=== PATIENT | male | born 1975 | race African-American/Black ===

== ENCOUNTER 2023-02-21 15:06 | Inpatient (IN) | payer OTHER ==
[~2023-02-21] VITALS: Ht 188 cm; Wt 125.6 kg
[2023-02-21 15:28] LABS: Basophils # (auto) 0.1 10 ^3/uL (0-0.2); Basophils % (auto) 1.5 % (0.0-2.0); Eosinophils # (auto) 0.2 10 ^3/uL (0-0.8); Eosinophils % (auto) 2.9 % (0.0-7.0); Hematocrit 43.8 % (41.0-53.0); Hemoglobin 14.8 g/dL (13.5-17.5); Lymphocytes # (auto) 1.9 10 ^3/uL (0.4-5.4); Lymphocytes % (auto) 31.8 % (10.0-50.0); Mean Corpuscular Hgb Conc. 33.7 g/dL (32.0-36.0); Monocytes # (auto) 0.8 10 ^3/uL (0-1.3); Monocytes % (auto) 13.9 % (0.0-12.0); Neutrophils % (auto) 49.9 % (37.0-80.0); Nucleated Red Blood Cells % 0.1 %; Red Blood Cells 4.93 10^6/uL (4.5-5.90); Red Cell Distribution Width 14.1 % (11.8-14.3)
[2023-02-21] MEDS ORDERED: InsuLIN REG 1unit/0.01ml Soln (100units/ml) IV ONE (15:30)
[2023-02-21] MEDS ORDERED: SODIUM CHLORIDE 0.9% 1,000 ML IV ONE (15:30)
[2023-02-21 15:43] LABS: Alanine Aminotransferase 32 U/L (7-40); Alkaline Phosphatase 86 U/L (46-116); Anion Gap 9 (5-15); Aspartate Aminotransferase 16 U/L (13-40); BUN/Creatinine Ratio 10.1 (10.0-20.0); Blood Urea Nitrogen 11 mg/dL (9-23); Calcium 8.8 mg/dL (8.7-10.4); Carbon Dioxide 26 mmol/L (20-30); Chloride 103 mmol/L (98-107); Glucose 291 mg/dL (74-106); Sodium 138 mmol/L (136-145)
[2023-02-21 15:44] LABS: Albumin 4.2 g/dL (3.2-4.8); Bilirubin, Total 0.5 mg/dL (0.2-1.0); Total Protein 6.7 g/dL (5.7-8.2)
[2023-02-21 16:41] LABS: Urine Bacteria FEW /hpf (None Seen); Urine Blood Negative /uL (Negative); Urine Clarity Clear (Clear); Urine Color Colorless (Yellow); Urine Protein, UAD Negative (Negative); Urine Specific Gravity 1.032 (1.001-1.035); Urine Sperm PRESENT /hpf (None Seen); Urine Urobilinogen Normal (Negative); Urine WBC 1 /hpf (0 - 3)
[2023-02-21] MEDS ORDERED: ONDANSETRON HCL 4 MG/2 ML VIAL IV PRN (20:45)
[2023-02-21] MEDS ORDERED: DEXTROSE (50%) 50ML SYRG IV PRN (20:45)
[2023-02-21] MEDS ORDERED: NITROGLYCERIN 0.4 MG SL TAB SL PRN (20:45)
[2023-02-21] MEDS ORDERED: MORPHINE SULFATE INJ 2 MG/ml SYRG IV PRN (20:45)
[2023-02-21] MEDS ORDERED: ACETAMINOPHEN 325 MG TAB PO PRN (20:45)
[2023-02-21] MEDS ORDERED: TEMAZEPAM 15 MG CAP PO PRN (20:45)
[2023-02-21] MEDS ORDERED: ATORVASTATIN 20 MG TAB PO SCH (22:00)
[2023-02-21 22:16] LABS: Triglycerides 251 mg/dL (< 150)
[2023-02-21 22:17] LABS: LDL Cholesterol 95 mg/dL (< 100)
[2023-02-21 22:18] LABS: Cholesterol 180 mg/dL (< 200); HDL Cholesterol 42 mg/dL (40-59)
[2023-02-21 22:24] VITALS: PULSE 92; RESP 20; O2SAT 95
[2023-02-21] MEDS: ACCU-CHEK COMFORT CURVE STRIP VI SCH (22:43)
[2023-02-21] MEDS ORDERED: MAGNESIUM SULFATE 1GM/100ML 200 ML IV ONE (22:50)
[2023-02-21] MEDS: InsuLIN REG 1unit/0.01ml Soln (100units/ml) SC SCH (22:52)
[2023-02-21] MEDS: MAGNESIUM SULFATE 1GM/100ML 100 ML IV SCH ×2 (22:52→23:30)
[2023-02-22] VITALS (8 sets, daily range): BP systolic 120–142; BP diastolic 70–82; PULSE 75–97; RESP 16–20; TEMP 97.9–98.5; O2SAT 92–98
[2023-02-22] MEDS ORDERED: INSU-1224 (01:44)
[2023-02-22] MEDS ORDERED: RIV20T PO (01:44)
[2023-02-22] MEDS ORDERED: INSUINJ37 SC (01:44)
[2023-02-22 05:54] LABS: Basophils # (auto) 0 10 ^3/uL (0-0.2); Basophils % (auto) 0.8 % (0.0-2.0); Eosinophils # (auto) 0.2 10 ^3/uL (0-0.8); Eosinophils % (auto) 3.4 % (0.0-7.0); Hematocrit 41.9 % (41.0-53.0); Lymphocytes % (auto) 33.1 % (10.0-50.0); Mean Corpuscular Hemoglobin 29.7 pg (28.0-32.0); Mean Corpuscular Hgb Conc. 33.5 g/dL (32.0-36.0); Mean Corpuscular Volume 88.8 fL (80.0-100.0); Monocytes # (auto) 0.9 10 ^3/uL (0-1.3); Monocytes % (auto) 14.6 % (0.0-12.0); Neutrophils # (auto) 2.9 10 ^3/uL (1.6-8.6); Neutrophils % (auto) 48.1 % (37.0-80.0); Nucleated Red Blood Cells % 0.1 %; Red Blood Cells 4.72 10^6/uL (4.5-5.90); Red Cell Distribution Width 14.1 % (11.8-14.3)
[2023-02-22 06:00] LABS: Chloride 105 mmol/L (98-107); Potassium 3.5 mmol/L (3.5-5.1); Sodium 137 mmol/L (136-145)
[2023-02-22 06:01] LABS: Anion Gap 6 (5-15); Calcium 8.5 mg/dL (8.5-10.1); Carbon Dioxide 26 mmol/L (20-30)
[2023-02-22] MEDS: ACCU-CHEK COMFORT CURVE STRIP VI SCH ×4 (06:01→21:15)
[2023-02-22] MEDS: InsuLIN REG 1unit/0.01ml Soln (100units/ml) SC SCH ×4 (06:03→21:16)
[2023-02-22 06:06] LABS: BUN/Creatinine Ratio 9.6 (10.0-20.0); Blood Urea Nitrogen 9 mg/dL (9-23); Glucose 202 mg/dL (74-106)
[2023-02-22] MEDS ORDERED: ASPirin 81 mg TAB PO SCH (10:00)
[2023-02-22] MEDS ORDERED: RIVAROXABAN 20 MG TAB PO SCH (18:00)
[2023-02-22] MEDS: ATORVASTATIN 20 MG TAB PO SCH ×2 (20:00→21:17)
[2023-02-22] MEDS: ENOXAPARIN SOD 120 MG/0.8 ML SYRINGE SC SCH (21:20)
[2023-02-22] MEDS: DAKINS QUARTER STR 0.125% (NaHypochlorite) 473 ML TOPICAL SOL TOP SCH (21:23)
[2023-02-23 08:00] VITALS: BP 126/80; PULSE 81; PULSE 85; RESP 18; TEMP 98.1; O2SAT 97
[2023-02-23] MEDS: DAKINS QUARTER STR 0.125% (NaHypochlorite) 473 ML TOPICAL SOL TOP SCH ×2 (10:00→22:47)
[2023-02-23] MEDS: ENOXAPARIN SOD 120 MG/0.8 ML SYRINGE SC SCH ×2 (10:00→21:28)
[2023-02-23] MEDS: InsuLIN REG 1unit/0.01ml Soln (100units/ml) SC SCH ×5 (11:30→21:28)
[2023-02-23] MEDS: ACCU-CHEK COMFORT CURVE STRIP VI SCH ×5 (11:30→22:48)
[2023-02-23] MEDS ORDERED: ASPirin-EC 81 mg tab PO SCH (13:00)
[2023-02-23 16:00] VITALS: BP 117/69; PULSE 87; RESP 18; TEMP 98.6; O2SAT 98
[2023-02-23 20:00] VITALS: PULSE 90
[2023-02-23] MEDS: ATORVASTATIN 20 MG TAB PO SCH (21:28)
[2023-02-23 22:00] VITALS: BP 126/60; PULSE 62; RESP 17; TEMP 98.7; O2SAT 98
[2023-02-24 05:00] VITALS: BP 114/59; PULSE 83; RESP 17; TEMP 98.6; O2SAT 97
[2023-02-24] MEDS ORDERED: LACT12LO26 TOP (05:48)
[2023-02-24] MEDS: InsuLIN REG 1unit/0.01ml Soln (100units/ml) SC SCH ×2 (06:15→11:32)
[2023-02-24] MEDS: ACCU-CHEK COMFORT CURVE STRIP VI SCH ×2 (06:15→11:29)
[2023-02-24 08:00] VITALS: BP 123/73; PULSE 71; PULSE 80; RESP 20; TEMP 97.7; O2SAT 97
[2023-02-24] MEDS: ENOXAPARIN SOD 120 MG/0.8 ML SYRINGE SC SCH (09:52)
[2023-02-24] MEDS: DAKINS QUARTER STR 0.125% (NaHypochlorite) 473 ML TOPICAL SOL TOP SCH (09:53)
[2023-02-24] MEDS ORDERED: ASPirin-EC 81 mg tab PO SCH (10:00)
[2023-02-24] MEDS ORDERED: ATO40T PO (10:55)
[2023-02-24] MEDS ORDERED: ASPI1TAB20 PO (10:55)
[2023-02-24 11:59] VITALS: BP 123/73; PULSE 71; RESP 20; TEMP 97.7; O2SAT 97
[2023-02-24 12:00] VITALS: BP 119/78; PULSE 82; RESP 20; TEMP 98.3; O2SAT 95
== END 2023-02-24 12:40 | disposition home or self-care (01) | DRG 639 ==
LOC: ER 15:06 → TELE 20:43 → TELE-EAST 23:31
PROVIDERS: ADMIT Nurse Practitioner; ATTEND Family Medicine
DX: E11.65 Type 2 diabetes mellitus with hyperglycemia (principal); R07.89 Other chest pain; E66.9 Obesity, unspecified; J45.909 Unspecified asthma, uncomplicated; E78.5 Hyperlipidemia, unspecified; Z79.4 Long term (current) use of insulin; Z86.718 Personal history of other venous thrombosis and embolism; Z79.01 Long term (current) use of anticoagulants; Z83.3 Family history of diabetes mellitus; Z91.199 Patient's noncompliance with other medical treatment and regimen due to unspecified reason; Z68.35 Body mass index [BMI] 35.0-35.9, adult
CPT/HCPCS: 36415; 71046; 78452; 80048; 80053; 80061; 81001; 82962; 83036; 83735; 83880; 84443; 84484; 85025; 93005; 93017; 93306; G0378; J1815

== ENCOUNTER 2023-03-01 22:09 | Emergency (ER) | payer OTHER ==
[~2023-03-01] VITALS: Ht 188 cm; Wt 113.0 kg
[~2023-03-01 22:09] MED LIST: ASPI1TAB20 PO; ATO40T PO; INSU-1224; INSUINJ37 SC; LACT12LO26 TOP; RIV20T PO
[2023-03-01 22:38] VITALS: BP 144/69; RESP 16; O2SAT 99
[2023-03-01 22:43] VITALS: PULSE 91
[2023-03-01 23:12] LABS: Basophils # (auto) 0.1 10 ^3/uL (0-0.2); Basophils % (auto) 0.9 % (0.0-2.0); Eosinophils # (auto) 0.2 10 ^3/uL (0-0.8); Eosinophils % (auto) 1.5 % (0.0-7.0); Hematocrit 46.4 % (41.0-53.0); Hemoglobin 15.7 g/dL (13.5-17.5); Lymphocytes # (auto) 3.3 10 ^3/uL (0.4-5.4); Lymphocytes % (auto) 30.1 % (10.0-50.0); Mean Corpuscular Hemoglobin 30.3 pg (28.0-32.0); Mean Corpuscular Hgb Conc. 33.8 g/dL (32.0-36.0); Mean Corpuscular Volume 89.7 fL (80.0-100.0); Monocytes # (auto) 1.1 10 ^3/uL (0-1.3); Monocytes % (auto) 9.6 % (0.0-12.0); Neutrophils # (auto) 6.4 10 ^3/uL (1.6-8.6); Neutrophils % (auto) 57.9 % (37.0-80.0); Nucleated Red Blood Cells % 0.1 %; Red Blood Cells 5.17 10^6/uL (4.5-5.90); Red Cell Distribution Width 14.2 % (11.8-14.3)
[2023-03-01 23:28] LABS: INR 1.19 (0.9-1.15); Partial Thromboplastin Time 31.4 SEC (24.5-34.5); Prothrombin Time 12.4 sec (9.3-11.8)
[2023-03-01 23:42] LABS: Chloride 104 mmol/L (98-107); Potassium 3.3 mmol/L (3.5-5.1); Sodium 138 mmol/L (136-145)
[2023-03-01 23:45] LABS: Anion Gap 10 (5-15); Calcium 9.5 mg/dL (8.7-10.4); Carbon Dioxide 24 mmol/L (20-30)
[2023-03-01 23:50] LABS: Alkaline Phosphatase 89 U/L (46-116); BUN/Creatinine Ratio 12.6 (10.0-20.0); Blood Urea Nitrogen 14 mg/dL (9-23); Magnesium 2.2 mg/dL (1.6-2.6)
[2023-03-01 23:52] LABS: Alanine Aminotransferase 56 U/L (7-40); Albumin 4.8 g/dL (3.2-4.8); Aspartate Aminotransferase 19 U/L (13-40); Bilirubin, Total 0.8 mg/dL (0.2-1.0); Total Protein 7.7 g/dL (5.7-8.2)
[2023-03-02 00:02] LABS: Glucose 211 mg/dL (74-106)
== END 2023-03-02 00:49 | disposition left against medical advice (07) ==
LOC: ER 22:09
DX: R06.02 Shortness of breath (principal); R07.89 Other chest pain; Z53.21 Procedure and treatment not carried out due to patient leaving prior to being seen by health care provider
CPT/HCPCS: 36415; 71045; 80053; 82962; 83735; 83880; 84484; 85025; 85610; 85730; 93005

== ENCOUNTER 2023-03-26 10:16 | Emergency (ER) | payer OTHER, MEDICAID ==
[~2023-03-26] VITALS: Ht 188 cm; Wt 121.4 kg
[2023-03-26] MEDS ORDERED: SODIUM CHLORIDE 0.9% 1,000 ML IV ONE (10:45)
[2023-03-26 11:11] LABS: Basophils # (auto) 0.1 10 ^3/uL (0-0.2); Basophils % (auto) 1.6 % (0.0-2.0); Eosinophils # (auto) 0.6 10 ^3/uL (0-0.8); Eosinophils % (auto) 8.4 % (0.0-7.0); Hematocrit 45.1 % (41.0-53.0); Hemoglobin 14.9 g/dL (13.5-17.5); Lymphocytes # (auto) 2.1 10 ^3/uL (0.4-5.4); Mean Corpuscular Hemoglobin 29.6 pg (28.0-32.0); Mean Corpuscular Hgb Conc. 32.9 g/dL (32.0-36.0); Mean Corpuscular Volume 89.8 fL (80.0-100.0); Monocytes # (auto) 0.9 10 ^3/uL (0-1.3); Monocytes % (auto) 12.6 % (0.0-12.0); Neutrophils # (auto) 3.2 10 ^3/uL (1.6-8.6); Neutrophils % (auto) 46.4 % (37.0-80.0); Nucleated Red Blood Cells % 0.2 %; Red Blood Cells 5.02 10^6/uL (4.5-5.90); Red Cell Distribution Width 13.9 % (11.8-14.3); White Blood Cell 6.9 10^3/uL (4.4-10.8)
[2023-03-26 11:29] LABS: Alanine Aminotransferase 25 U/L (7-40); Albumin 4.3 g/dL (3.2-4.8); Alkaline Phosphatase 82 U/L (46-116); Anion Gap 7 (5-15); Aspartate Aminotransferase 14 U/L (13-40); BUN/Creatinine Ratio 11.8 (10.0-20.0); Blood Urea Nitrogen 10 mg/dL (9-23); Carbon Dioxide 26 mmol/L (20-30); Chloride 106 mmol/L (98-107); Glucose 175 mg/dL (74-106); Potassium 4.2 mmol/L (3.5-5.1); Sodium 139 mmol/L (136-145)
[2023-03-26 11:30] LABS: Bilirubin, Total 1.1 mg/dL (0.2-1.0); Total Protein 6.7 g/dL (5.7-8.2)
[2023-03-26 12:36] LABS: Erythrocyte Sedimentation Rate 10 mm/hr (0-20)
[2023-03-26] MEDS ORDERED: CLIN150C PO ×2 (13:12)
[2023-03-26] MEDS ORDERED: CLINDAMYCIN 900MG IV 50 ML IV ONE (13:15)
[2023-03-26 14:53] VITALS: BP 112/65; PULSE 82; RESP 16; TEMP 98; O2SAT 100
[2023-03-27] MEDS ORDERED: GABA-1250 PO (17:24)
[2023-03-27] MEDS ORDERED: ATOR10TA52 PO (17:24)
== END 2023-03-26 14:57 | disposition home or self-care (01) ==
LOC: ER 10:16
DX: E11.65 Type 2 diabetes mellitus with hyperglycemia (principal); L03.116 Cellulitis of left lower limb; J45.909 Unspecified asthma, uncomplicated; E78.5 Hyperlipidemia, unspecified; Z79.4 Long term (current) use of insulin; Z79.2 Long term (current) use of antibiotics; Z79.82 Long term (current) use of aspirin; Z79.899 Other long term (current) drug therapy
CPT/HCPCS: 36415; 73700; 80053; 82010; 82962; 83605; 85025; 85652; 87040; 96361; 96365; 99285; J3490; J7030

== ENCOUNTER 2023-03-27 14:20 | Inpatient (IN) | payer OTHER, MEDICAID ==
[~2023-03-27] VITALS: Ht 188 cm; Wt 126.0 kg
[~2023-03-27 14:20] MED LIST changes: +CLIN150C PO
[2023-03-27 16:17] LABS: Basophils # (auto) 0.1 10 ^3/uL (0-0.2); Basophils % (auto) 1.2 % (0.0-2.0); Eosinophils # (auto) 0.7 10 ^3/uL (0-0.8); Eosinophils % (auto) 11.5 % (0.0-7.0); Hemoglobin 15.1 g/dL (13.5-17.5); Lymphocytes # (auto) 2.2 10 ^3/uL (0.4-5.4); Lymphocytes % (auto) 34.9 % (10.0-50.0); Mean Corpuscular Hemoglobin 29.5 pg (28.0-32.0); Mean Corpuscular Hgb Conc. 32.8 g/dL (32.0-36.0); Monocytes # (auto) 0.7 10 ^3/uL (0-1.3); Monocytes % (auto) 11.2 % (0.0-12.0); Neutrophils # (auto) 2.6 10 ^3/uL (1.6-8.6); Neutrophils % (auto) 41.2 % (37.0-80.0); Nucleated Red Blood Cells % 0.1 %; Red Blood Cells 5.11 10^6/uL (4.5-5.90); Red Cell Distribution Width 14.1 % (11.8-14.3); White Blood Cell 6.2 10^3/uL (4.4-10.8)
[2023-03-27 16:41] LABS: Alanine Aminotransferase 30 U/L (7-40); Albumin 4.3 g/dL (3.2-4.8); Alkaline Phosphatase 83 U/L (46-116); Anion Gap 6 (5-15); Aspartate Aminotransferase 18 U/L (13-40); BUN/Creatinine Ratio 7.7 (10.0-20.0); Blood Urea Nitrogen 7 mg/dL (9-23); Calcium 9.2 mg/dL (8.7-10.4); Carbon Dioxide 27 mmol/L (20-30); Chloride 105 mmol/L (98-107); Glucose 193 mg/dL (74-106); Potassium 4.2 mmol/L (3.5-5.1); Sodium 138 mmol/L (136-145)
[2023-03-27 16:42] LABS: Bilirubin, Total 0.7 mg/dL (0.2-1.0); Total Protein 6.9 g/dL (5.7-8.2)
[2023-03-27] MEDS ORDERED: VANCOMYCIN PER PHARMACY 0 MG IV SCH (17:00)
[2023-03-27] MEDS ORDERED: DEXTROSE (50%) 50ML SYRG IV PRN (17:00)
[2023-03-27] MEDS: ACCU-CHEK COMFORT CURVE STRIP VI SCH ×2 (17:00→22:32)
[2023-03-27] MEDS ORDERED: traMADol HCL 50 MG TAB PO PRN (17:00)
[2023-03-27] MEDS ORDERED: HYDROcodone-ACET 5/325MG TAB PO PRN (17:00)
[2023-03-27] MEDS ORDERED: GABA-1250 PO (17:24)
[2023-03-27] MEDS ORDERED: ATOR10TA52 PO (17:24)
[2023-03-27 17:43] LABS: Erythrocyte Sedimentation Rate 12 mm/hr (0-20)
[2023-03-27] MEDS ORDERED: VANCOMYCIN 1GM/250ML 250 ML IV SCH ×2 (19:00→20:15)
[2023-03-27] MEDS: InsuLIN REG 1unit/0.01ml Soln (100units/ml) SC SCH ×2 (19:09→22:40)
[2023-03-27] MEDS: VANCOMYCIN 1GM/250ML 250 ML IV SCH ×2 (19:56→20:00)
[2023-03-27] MEDS: ENOXAPARIN SOD 120 MG/0.8 ML SYRINGE SC SCH (22:24)
[2023-03-27] MEDS: GABAPENTIN 300 MG CAP PO SCH (22:24)
[2023-03-27] MEDS: ceFAZolin 1GM/50ML 50 ML IV SCH (22:42)
[2023-03-28] MEDS: VANCOMYCIN 1GM/250ML 250 ML IV SCH ×3 (01:14→18:44)
[2023-03-28 05:00] VITALS: BP 122/74; PULSE 80; RESP 16; TEMP 98.1; O2SAT 96
[2023-03-28] MEDS: ceFAZolin 1GM/50ML 50 ML IV SCH ×3 (05:40→21:30)
[2023-03-28] MEDS: InsuLIN REG 1unit/0.01ml Soln (100units/ml) SC SCH ×4 (05:46→21:25)
[2023-03-28] MEDS: ACCU-CHEK COMFORT CURVE STRIP VI SCH ×4 (06:44→22:00)
[2023-03-28 07:26] LABS: Lymphocytes % (auto) 36.2 % (10.0-50.0); Neutrophils % (auto) 38.3 % (37.0-80.0); White Blood Cell 5.2 10^3/uL (4.4-10.8)
[2023-03-28 07:27] LABS: Basophils # (auto) 0 10 ^3/uL (0-0.2); Basophils % (auto) 0.8 % (0.0-2.0); Eosinophils # (auto) 0.6 10 ^3/uL (0-0.8); Eosinophils % (auto) 11.4 % (0.0-7.0); Hematocrit 42.8 % (41.0-53.0); Hemoglobin 14.4 g/dL (13.5-17.5); Lymphocytes # (auto) 1.9 10 ^3/uL (0.4-5.4); Mean Corpuscular Hemoglobin 30.1 pg (28.0-32.0); Mean Corpuscular Hgb Conc. 33.7 g/dL (32.0-36.0); Mean Corpuscular Volume 89.3 fL (80.0-100.0); Monocytes # (auto) 0.7 10 ^3/uL (0-1.3); Monocytes % (auto) 13.3 % (0.0-12.0); Nucleated Red Blood Cells % 0.2 %; Red Blood Cells 4.79 10^6/uL (4.5-5.90); Red Cell Distribution Width 14.1 % (11.8-14.3)
[2023-03-28 07:45] LABS: Alanine Aminotransferase 27 U/L (7-40); Alkaline Phosphatase 71 U/L (46-116); Anion Gap 7 (5-15); Aspartate Aminotransferase 21 U/L (13-40); BUN/Creatinine Ratio 9.2 (10.0-20.0); Bilirubin, Total 0.6 mg/dL (0.2-1.0); Blood Urea Nitrogen 7 mg/dL (9-23); Carbon Dioxide 28 mmol/L (20-30); Chloride 104 mmol/L (98-107); Glucose 188 mg/dL (74-106); Potassium 3.9 mmol/L (3.5-5.1); Sodium 139 mmol/L (136-145); Total Protein 6.5 g/dL (5.7-8.2)
[2023-03-28 08:00] VITALS: BP 128/70; PULSE 78; RESP 20; TEMP 97.8; O2SAT 97
[2023-03-28] MEDS: ENOXAPARIN SOD 120 MG/0.8 ML SYRINGE SC SCH ×2 (10:05→21:51)
[2023-03-28] MEDS: PANTOPRAZOLE 40 MG/10 ML VIAL INJ IV SCH (10:05)
[2023-03-28] MEDS: ATORVASTATIN 20 MG TAB PO SCH (10:06)
[2023-03-28] MEDS: ACETAMINOPHEN 325 MG TAB PO PRN (10:15)
[2023-03-28 12:00] VITALS: BP 125/78; PULSE 78; RESP 20; TEMP 98.4; O2SAT 96
[2023-03-28 16:00] VITALS: BP 103/48; PULSE 82; RESP 20; TEMP 96.2; O2SAT 96
[2023-03-28 20:00] VITALS: RESP 18
[2023-03-28] MEDS: GABAPENTIN 300 MG CAP PO SCH (21:30)
[2023-03-28] MEDS: DAKINS QUARTER STR 0.125% (NaHypochlorite) 473 ML TOPICAL SOL TOP SCH (21:51)
[2023-03-28 22:00] VITALS: BP 115/58; PULSE 87; RESP 22; TEMP 98.4; O2SAT 100
[2023-03-29] MEDS: VANCOMYCIN 1GM/250ML 250 ML IV SCH ×3 (02:37→17:21)
[2023-03-29 05:00] VITALS: BP 122/75; PULSE 82; RESP 20; TEMP 97.7; O2SAT 95
[2023-03-29] MEDS: InsuLIN REG 1unit/0.01ml Soln (100units/ml) SC SCH ×4 (05:38→23:32)
[2023-03-29] MEDS: ceFAZolin 1GM/50ML 50 ML IV SCH ×3 (06:00→22:16)
[2023-03-29 06:14] LABS: Basophils # (auto) 0.1 10 ^3/uL (0-0.2); Basophils % (auto) 1.2 % (0.0-2.0); Eosinophils # (auto) 0.4 10 ^3/uL (0-0.8); Eosinophils % (auto) 7.6 % (0.0-7.0); Hematocrit 41.8 % (41.0-53.0); Lymphocytes # (auto) 1.6 10 ^3/uL (0.4-5.4); Lymphocytes % (auto) 32.5 % (10.0-50.0); Mean Corpuscular Hemoglobin 30.2 pg (28.0-32.0); Mean Corpuscular Hgb Conc. 33.4 g/dL (32.0-36.0); Mean Corpuscular Volume 90.4 fL (80.0-100.0); Monocytes # (auto) 0.6 10 ^3/uL (0-1.3); Monocytes % (auto) 11.5 % (0.0-12.0); Neutrophils # (auto) 2.3 10 ^3/uL (1.6-8.6); Neutrophils % (auto) 47.2 % (37.0-80.0); Nucleated Red Blood Cells % 0.2 %; Red Blood Cells 4.63 10^6/uL (4.5-5.90); White Blood Cell 4.8 10^3/uL (4.4-10.8)
[2023-03-29 06:22] LABS: Chloride 106 mmol/L (98-107); Potassium 3.9 mmol/L (3.5-5.1); Sodium 137 mmol/L (136-145)
[2023-03-29 06:23] LABS: Anion Gap 6 (5-15); Carbon Dioxide 25 mmol/L (20-30)
[2023-03-29 06:24] LABS: Calcium 8.5 mg/dL (8.7-10.4)
[2023-03-29 06:29] LABS: BUN/Creatinine Ratio 6.7 (10.0-20.0); Blood Urea Nitrogen 6 mg/dL (9-23); Glucose 213 mg/dL (74-106)
[2023-03-29] MEDS: ACCU-CHEK COMFORT CURVE STRIP VI SCH ×4 (06:32→22:24)
[2023-03-29 08:00] VITALS: PULSE 71; RESP 18
[2023-03-29 08:54] VITALS: BP 124/75; PULSE 82; RESP 15; TEMP 98.1; O2SAT 98
[2023-03-29] MEDS: ENOXAPARIN SOD 120 MG/0.8 ML SYRINGE SC SCH ×2 (09:32→22:24)
[2023-03-29] MEDS: PANTOPRAZOLE 40 MG/10 ML VIAL INJ IV SCH (09:32)
[2023-03-29] MEDS: ATORVASTATIN 20 MG TAB PO SCH (09:33)
[2023-03-29] MEDS: DAKINS QUARTER STR 0.125% (NaHypochlorite) 473 ML TOPICAL SOL TOP SCH ×2 (10:00→22:32)
[2023-03-29 12:33] VITALS: BP 132/67; PULSE 82; RESP 18; TEMP 98.1; O2SAT 96
[2023-03-29] MEDS: ACETAMINOPHEN 325 MG TAB PO PRN (13:09)
[2023-03-29 17:01] VITALS: BP 125/76; PULSE 81; RESP 19; TEMP 98.3; O2SAT 94
[2023-03-29 17:46] LABS: INR 1.09 (0.9-1.15); Partial Thromboplastin Time 31.3 SEC (24.5-34.5); Prothrombin Time 11.4 sec (9.3-11.8)
[2023-03-29 21:00] VITALS: BP 110/56; PULSE 85; RESP 20; TEMP 98.6; O2SAT 97
[2023-03-29] MEDS: GABAPENTIN 300 MG CAP PO SCH (22:16)
[2023-03-29] MEDS: DOCUSATE SOD 100 MG CAP PO PRN (22:17)
[2023-03-30] MEDS: VANCOMYCIN 1GM/250ML 250 ML IV SCH ×2 (01:54→10:53)
[2023-03-30 05:24] VITALS: BP 111/59; PULSE 82; RESP 18; TEMP 98.5; O2SAT 94
[2023-03-30] MEDS: ceFAZolin 1GM/50ML 50 ML IV SCH ×3 (06:34→20:47)
[2023-03-30] MEDS: ACCU-CHEK COMFORT CURVE STRIP VI SCH ×3 (06:36→17:03)
[2023-03-30] MEDS: InsuLIN REG 1unit/0.01ml Soln (100units/ml) SC SCH ×3 (07:22→17:03)
[2023-03-30 08:00] VITALS: PULSE 81; RESP 18
[2023-03-30 09:00] VITALS: BP 118/74; PULSE 81; RESP 18; TEMP 98.3; O2SAT 94
[2023-03-30] MEDS: DAKINS QUARTER STR 0.125% (NaHypochlorite) 473 ML TOPICAL SOL TOP SCH (10:00)
[2023-03-30] MEDS: PANTOPRAZOLE 40 MG/10 ML VIAL INJ IV SCH (10:39)
[2023-03-30] MEDS: ENOXAPARIN SOD 120 MG/0.8 ML SYRINGE SC SCH ×2 (10:39→20:46)
[2023-03-30] MEDS: ATORVASTATIN 20 MG TAB PO SCH (10:39)
[2023-03-30] MEDS ORDERED: LIDOCAINE 1% (LOCAL ANESTH.) PF 5ml SDV ID ONE (11:45)
[2023-03-30 13:00] VITALS: BP 116/71; PULSE 81; RESP 19; TEMP 98.4; O2SAT 100
[2023-03-30 17:00] VITALS: BP 115/53; PULSE 86; RESP 18; TEMP 98.3; O2SAT 95
[2023-03-30] MEDS: DOCUSATE SOD 100 MG CAP PO PRN (18:59)
[2023-03-30] MEDS: GABAPENTIN 300 MG CAP PO SCH (20:45)
[2023-03-30] MEDS ORDERED: SODIUM CHLOR 0.9% PF (SALINE LOCK) 10ML VIAL/SYR IV SCH (22:00)
== END 2023-03-30 23:00 | disposition home health service (06) | DRG 638 ==
LOC: ER 14:20 → OVERFLOW 17:24 → WEST WING 23:19
PROVIDERS: ADMIT Nurse Practitioner Family; ATTEND Internal Medicine Geriatric Medicine
PROC: 02HV33Z Insertion of Infusion Device into Superior Vena Cava, Percutaneous Approach (ICD-10-PCS; principal; 2023-03-30)
PROC: B548ZZA Ultrasonography of Superior Vena Cava, Guidance (ICD-10-PCS; 2023-03-30)
DX: E11.69 Type 2 diabetes mellitus with other specified complication (principal); M86.9 Osteomyelitis, unspecified; E11.621 Type 2 diabetes mellitus with foot ulcer; I82.502 Chronic embolism and thrombosis of unspecified deep veins of left lower extremity; E11.65 Type 2 diabetes mellitus with hyperglycemia; E78.5 Hyperlipidemia, unspecified; E11.42 Type 2 diabetes mellitus with diabetic polyneuropathy; J45.909 Unspecified asthma, uncomplicated; Z83.3 Family history of diabetes mellitus; M20.42 Other hammer toe(s) (acquired), left foot
CPT/HCPCS: 36415; 36569; 71045; 78315; 80048; 80053; 80202; 82962; 83036; 85025; 85610; 85652; 85730; 96365; 96372; C9113; G0378; J0690; J1815

== ENCOUNTER 2023-06-04 23:21 | Emergency (ER) | payer OTHER, MEDICAID ==
[~2023-06-04] VITALS: Ht 188 cm; Wt 120.5 kg
[~2023-06-04 23:21] MED LIST changes: -ASPI1TAB20 PO; -ATO40T PO; +ATOR10TA52 PO; -CLIN150C PO; +GABA-1250 PO; -INSUINJ37 SC; -LACT12LO26 TOP; -RIV20T PO
[2023-06-05] MEDS ORDERED: AUG875T PO (00:02)
[2023-06-05] MEDS ORDERED: OFL50TS OT (00:02)
[2023-06-05 01:13] VITALS: BP 115/70; PULSE 93; RESP 16; TEMP 98; O2SAT 96
== END 2023-06-05 01:24 | disposition home or self-care (01) ==
LOC: ER 23:21
DX: H66.92 Otitis media, unspecified, left ear (principal); J45.909 Unspecified asthma, uncomplicated; E11.9 Type 2 diabetes mellitus without complications; E78.5 Hyperlipidemia, unspecified

== ENCOUNTER 2023-10-01 13:07 | Emergency (ER) | payer OTHER, MEDICAID ==
[~2023-10-01] VITALS: Ht 188 cm; Wt 120.5 kg
[~2023-10-01 13:07] MED LIST changes: +AUG875T PO; +OFL50TS OT
[2023-10-01] MEDS: SODIUM CHLORIDE 0.9% 2,000 ML IV ONE (13:56)
[2023-10-01 14:14] LABS: Urine Bacteria None Seen /hpf (None Seen); Urine WBC None Seen /hpf (0 - 3)
[2023-10-01 14:38] LABS: Urine Blood Negative /uL (Negative); Urine Clarity Clear (Clear); Urine Color Light-Yellow (Yellow); Urine Protein, UAD Negative (Negative); Urine Specific Gravity 1.036 (1.001-1.035); Urine Urobilinogen Normal (Negative); Urine pH 5.5 (5.0-9.0)
[2023-10-01 14:39] LABS: Basophils # (auto) 0.1 10 ^3/uL (0-0.2); Basophils % (auto) 1.5 % (0.0-2.0); Eosinophils # (auto) 0.3 10 ^3/uL (0-0.8); Eosinophils % (auto) 3.7 % (0.0-7.0); Hematocrit 45.6 % (41.0-53.0); Lymphocytes # (auto) 1.8 10 ^3/uL (0.4-5.4); Lymphocytes % (auto) 20.4 % (10.0-50.0); Mean Corpuscular Hemoglobin 29.1 pg (28.0-32.0); Mean Corpuscular Volume 88.4 fL (80.0-100.0); Monocytes # (auto) 0.9 10 ^3/uL (0-1.3); Monocytes % (auto) 9.9 % (0.0-12.0); Neutrophils # (auto) 5.6 10 ^3/uL (1.6-8.6); Neutrophils % (auto) 64.5 % (37.0-80.0); Nucleated Red Blood Cells % 0.1 %; Red Blood Cells 5.16 10^6/uL (4.5-5.90); White Blood Cell 8.6 10^3/uL (4.4-10.8)
[2023-10-01 15:02] LABS: Alanine Aminotransferase 19 U/L (7-40); Albumin 4.3 g/dL (3.2-4.8); Alkaline Phosphatase 90 U/L (46-116); Anion Gap 6 (5-15); Aspartate Aminotransferase 13 U/L (13-40); BUN/Creatinine Ratio 8.3 (10.0-20.0); Bilirubin, Total 1.5 mg/dL (0.2-1.0); Blood Urea Nitrogen 12 mg/dL (9-23); Calcium 9.6 mg/dL (8.7-10.4); Carbon Dioxide 25 mmol/L (20-30); Chloride 102 mmol/L (98-107); Glucose 306 mg/dL (74-106); Potassium 4.3 mmol/L (3.5-5.1); Sodium 133 mmol/L (136-145); Total Protein 7.4 g/dL (5.7-8.2)
[2023-10-01] MEDS: LACTATED RINGER'S 1,000 ML IV ONE (15:51)
[2023-10-01 16:57] VITALS: BP 120/68; PULSE 85; RESP 20; TEMP 98.7; O2SAT 98
== END 2023-10-01 17:22 | disposition home or self-care (01) ==
LOC: ER 13:07
DX: E11.65 Type 2 diabetes mellitus with hyperglycemia (principal); J45.909 Unspecified asthma, uncomplicated; E78.5 Hyperlipidemia, unspecified
CPT/HCPCS: 36415; 80053; 81001; 82010; 82962; 85025; 96360; 96361; 99283; J7030

== ENCOUNTER 2025-01-11 11:15 | Emergency (ER) | payer OTHER, MEDICAID ==
[~2025-01-11] VITALS: Ht 188 cm; Wt 119.6 kg
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
--- NOTE | 2025-01-11 12:21 | DVH ---
XY R FOOT 3 VIEW XRAY, INDICATION: toe pain TECHNICAL DATA: Frontal, oblique and lateral views were obtained of the right foot. COMPARISON: None FINDINGS: No fracture is identified. Joint spaces are maintained. Alignment is anatomic. The hallux sesamoids a ppear normal. Soft tissues are within normal limits. IMPRESSION: No acute fracture or dislocation of the right foot.
[2025-01-11 12:57] LABS: Alanine Aminotransferase 25 U/L (7-40); Albumin 4.4 g/dL (3.2-4.8); Alkaline Phosphatase 73 U/L (46-116); Anion Gap 11 (5-15); BUN/Creatinine Ratio 9.8 (10.0-20.0); Bilirubin, Total 1.1 mg/dL (0.2-1.0); Blood Urea Nitrogen 10 mg/dL (9-23); Calcium 9.6 mg/dL (8.7-10.4); Carbon Dioxide 25 mmol/L (20-31); Chloride 102 mmol/L (98-107); Glucose 240 mg/dL (74-106); Potassium 4.3 mmol/L (3.5-5.1); Sodium 138 mmol/L (136-145); Total Protein 7.6 g/dL (5.7-8.2)
[2025-01-11] MEDS ORDERED: BACDST PO (13:40)
[2025-01-11] MEDS ORDERED: CEPH500T PO (13:40)
[2025-01-11 13:43] LABS: Hematocrit 46.9 % (41.0-53.0); Hemoglobin 15.8 g/dL (13.5-17.5); Mean Corpuscular Hemoglobin 29.6 pg (28.0-32.0); Mean Corpuscular Volume 87.8 fL (80.0-100.0); Nucleated Red Blood Cells % 0.1 %
[2025-01-11 15:28] VITALS: BP 128/71; TEMP 98.1
[2025-01-11 15:31] VITALS: PULSE 82; RESP 18; O2SAT 99
== END 2025-01-11 15:34 | disposition home or self-care (01) ==
LOC: ER 11:15
DX: E11.621 Type 2 diabetes mellitus with foot ulcer (principal); E78.5 Hyperlipidemia, unspecified; J45.909 Unspecified asthma, uncomplicated; Z79.899 Other long term (current) drug therapy
CPT/HCPCS: 36415; 73630; 80053; 83605; 85025; 85652; 86141

== ENCOUNTER 2025-04-11 07:28 | Emergency (ER) | payer OTHER, MEDICAID ==
[~2025-04-11] VITALS: Ht 188 cm; Wt 119.8 kg
[~2025-04-11 07:28] MED LIST changes: +BACDST PO; +CEPH500T PO
[2025-04-11 07:29] VITALS: BP 120/79; PULSE 80; RESP 18; TEMP 97.4; O2SAT 96
== END 2025-04-11 09:08 | disposition left against medical advice (07) ==
LOC: ER 07:28
DX: R10.9 Unspecified abdominal pain (principal); Z79.899 Other long term (current) drug therapy